=== PATIENT | female | born 1990 | race Caucasian/White ===

== ENCOUNTER 2016-12-02 19:06 | Emergency (ER) | payer MEDICARE ==
--- NOTE | 2016-12-02 19:47 | ED.ADGEN ---
Past History Past Medical History: Anxiety, CAD, Hip Fracture, Renal Disease, Other Past Surgical History: Hip Replacement, Other Smoking: Cigarettes Alcohol Use: None Drug Use: None Adult General Chief Complaint Chief Complaint " I hurt.. and I don't feel well... I had surgery on this Rt. hip.. but I left AMA.. and I usually need Hemodialysis.on Sat. .. ".." I am short of breath...".. " I was in [facility] for over a month... " HPI HPI Patient is a 26 year old female who presents with above hx and complaints of shortness of breath. Pt. reportedly recently had Rt. hip replacement had a code blue called during that admission. Pt. left AMA reportedly from [facility]. Pt. is Enstage renal dz with HD on . Sat. Pt. was found at home hypoxic in 80% sat range. Sats did come up to 92% on 4 liters nasal canula. Pt. follows with Dr. Stanton for nephrology. . Pt. complaints of fever and chills and generalized weakness. Pt. has generalized chest pain. Pt. some what poor historian. Review of Systems Review of Systems Constitutional: Hx fever or chills [] Eyes: Denies change in visual acuity, redness, or eye pain [] HENT: Denies nasal congestion or sore throat [] Respiratory: Hx of cough and shortness of breath [] Cardiovascular: No additional information not addressed in HPI [] GI: Denies abdominal pain, nausea, vomiting, bloody stools or diarrhea [] : Denies dysuria or hematuria [] Musculoskeletal: Denies back pain or joint pain [] Integument: Denies rash or skin lesions [] Neurologic: Denies headache, focal weakness or sensory changes [] Endocrine: Denies polyuria or polydipsia [] Family History Family History Non-contributory Current Medications Current Medications Current Medications Medications (Trade) Dose Ordered Sig/Radha Start Time Stop Time Status Last Admin Dose Admin Aspirin (Children'S Aspirin) 324 mg 1X ONCE 12/02/16 20:15 12/02/16 20:16 DC 12/02/16 20:15 324 MG Ceftriaxone Sodium 1 gm 1 gm 1X ONCE 12/02/16 21:30 12/02/16 21:31 DC 12/02/16 21:30 1 GM Diphenhydramine HCl 50 mg 50 mg 1X ONCE 12/02/16 22:00 12/02/16 22:01 DC 12/02/16 22:00 50 MG Morphine Sulfate (Morphine 10mg Syringe) 10 mg 1X ONCE 12/02/16 23:00 12/02/16 23:02 DC 12/02/16 22:38 10 MG Sodium Chloride (Iv Sodium Chloride 0.9% 250ml) 250 ml @ As Directed STK-MED ONCE 12/02/16 21:58 12/02/16 21:59 DC Vancomycin HCl 1 gm STK-MED ONCE 12/02/16 21:59 12/02/16 22:00 DC Vancomycin HCl/ Sodium Chloride (Iv Sodium Chloride 0.9% 250ml) 250 ml @ 250 mls/hr 1X ONCE 12/02/16 21:30 12/02/16 22:29 DC 12/02/16 21:30 250 MLS/HR Allergies Allergies Allergies Coded Allergies Type Severity Reaction Last Updated Verified Sulfa (Sulfonamide Antibiotics) Allergy Intermediate 12/02/16 Yes Physical Exam Physical Exam Constitutional:in acute distress, non-toxic appearance. [] HENT: Normocephalic, atraumatic, bilateral external ears normal, oropharynx moist, no oral exudates, nose normal. [] Eyes: PERRLA, EOMI, conjunctiva normal, no discharge. [] Neck: Normal range of motion, no tenderness, supple, no stridor. [] Cardiovascular:Tachycarida Heart rate regular rhythm, no murmur [] Lungs & Thorax: Bilateral breath sounds equal at apexes with scattered wheezes and rhonchi on auscultation , PMI to Lt. . Chest wall tender. Decrease breaths sounds Rt. base. Abdomen: Bowel sounds normal, soft, no tenderness, no masses, no pulsatile masses. Scar. Skin: Warm, dry, no erythema, no rash. Poor turgor. Back: No tenderness, no CVA tenderness. [] Extremities: Rt. hip tenderness, no cyanosis, no clubbing, ROM intact, no edema. Rt. hip bart- recent hip replacement. Shunt in Lt arm has good thrill. Neurologic: Alert and oriented X 3, No gross motor function deficits from base line, decreased distal sensory feet, Psychologic: Affect anxious, judgement normal, mood depressed. Current Patient Data Vital Signs Vital Signs Date Time Temp Pulse Resp B/P Pulse Ox O2 Delivery O2 Flow Rate FiO2 12/02/16 22:38 22 98 Nasal Cannula 12/02/16 20:00 4.0 12/02/16 19:10 97.7 122 Lab Results Laboratory Tests Test 12/02/16 21:00 12/02/16 21:20 Influenza Type A (Rapid) Negative (NEGATIVE) Influenza Type B (Rapid) Negative (NEGATIVE) Group A Streptococcus Rapid Negative (NEGATIVE) White Blood Count 15.0x10^3/uL (4.0-11.0) H Red Blood Count 2.77x10^6/uL (3.50-5.40) L Hemoglobin 8.7g/dL (12.0-15.5) L Hematocrit 26.3% (36.0-47.0) L Mean Corpuscular Volume 95fL (79-100) Mean Corpuscular Hemoglobin 31pg (25-35) Mean Corpuscular Hemoglobin Concent 33g/dL (31-37) Red Cell Distribution Width 16.8% (11.5-14.5) H Platelet Count 325x10^3/uL (140-400) Neutrophils (%) (Auto) 89% (31-73) H Lymphocytes (%) (Auto) 6% (24-48) L Monocytes (%) (Auto) 4% (0-9) Eosinophils (%) (Auto) 2% (0-3) Basophils (%) (Auto) 0% (0-3) Neutrophils # (Auto) 13.3x10^3uL (1.8-7.7) H Lymphocytes # (Auto) 0.8x10^3/uL (1.0-4.8) L Monocytes # (Auto) 0.6x10^3/uL (0.0-1.1) Eosinophils # (Auto) 0.2x10^3/uL (0.0-0.7) Basophils # (Auto) 0.0x10^3/uL (0.0-0.2) Prothrombin Time 13.1SEC (9.4-11.4) H Prothrombin Time INR 1.3 (0.9-1.1) H PTT 28SEC (23-33) Sodium Level 141mmol/L (136-145) Potassium Level 3.8mmol/L (3.5-5.1) Chloride Level 102mmol/L (98-107) Carbon Dioxide Level 30mmol/L (21-32) Anion Gap 9 (6-14) Blood Urea Nitrogen 39mg/dL (7-20) H Creatinine 4.6mg/dL (0.6-1.0) H Estimated GFR (Cockcroft-Gault) 11.5 Glucose Level 117mg/dL (70-99) H Calcium Level 7.7mg/dL (8.5-10.1) L Magnesium Level 1.6mg/dL (1.8-2.4) L Total Bilirubin 0.3mg/dL (0.2-1.0) Direct Bilirubin 0.1mg/dL (0.0-0.2) Aspartate Amino Transferase (AST) 19U/L (15-37) Alanine Aminotransferase (ALT) 16U/L (14-59) Alkaline Phosphatase 413U/L (46-116) H Creatine Kinase 21U/L (26-192) L Creatine Kinase MB (Mass) < 0.5ng/mL (0.0-3.6) Creatine Kinase MB Relative Index 2.4% (0-4) Troponin I Quantitative 0.034ng/mL (0-0.055) HM-Ocw-B-Type Natriuretic Peptide > 40925jl/mL (0-124) H Total Protein 6.6g/dL (6.4-8.2) Albumin 2.6g/dL (3.4-5.0) L Lipase 166U/L (73-393) Serum Test, Qualitative Negative (NEG) EKG EKG [] My interpretation of EKG shows a sinus tachycardia 120 bpm. Some bimodal P- wave's in left leads. This nonspecific anterior lateral changes. No findings acute STEMI of contralateral changes Radiology/Procedures Radiology/Procedures I interpretation of chest x-ray shows marked bilateral atelectasis. Cardiomegaly. Increased cephalization. Blunting of [place] Phrenic angles particularly on right. Suggestive of consolidated pneumonia .[]. Multiple rib fractures. Hip film shows adequate placement of artificial hip / socket. Bart. DJD CT shows numerous healing fx's, L 2 compression fx, Rt. loculated effusion and consolidation. Stent Lt subclavian . Hilar and axillary nodes. See formal report when available. Course & Med Decision Making Course & Med Decision Making Pertinent Labs and Imaging studies reviewed. (See chart for details). Arrangements made for transfer to [facility] - for consults with Dr. Bloom and Pulmonary. Dr. Davis-[facility] accepting. Room for transfer arranged. Pt. now does not want to go to [facility], request to be transfer to . Discussed presentation, testing and tx. plan with Christoph Solomon and agreed to accept pt in transfer. 0130. Transfer center then called back and asked for a report to be given to family practice. Discussed presentation, testing and tx plan with Dr. Hernandez, will accept pt in transfer. Critical care 60 mins.. [] Final Impression Final Impression 1. Respiratory failure hypoxia 2. Multiple rib fractures 3. End-stage renal disease hemodialysis Tuesdays and Saturdays 4. Hypo-magnesium 5. Leukocytosis 6. Anemia 7. Severe protein malnutrition albumin 2.6 8. Pneumonia [] 9. Recent Rt. Hip -Replacement 10.Hx Code Blue and CPR Problems: Dragon Disclaimer Dragon Disclaimer This electronic medical record was generated, in whole or in part, using a voice recognition dictation system. STEVE CASSIDY MD Dec 02, 2016 19:47
[2016-12-02] MEDS ORDERED: MORPHINE SULFATE 10 MG/ML SYRINGE. SQ ONE ×2 (20:00→23:00)
[2016-12-02] MEDS ORDERED: ASPIRIN 81 MG TAB.CHEW PO ONE (20:15)
--- NOTE | 2016-12-02 20:25 | EKG ---
[address] [address] Test Date: 2016-12-02 Test Time: 20:23:57 Pat Name: [facility] Department: Room: Gender: F Marketing Program Manager: : 1990 Requested By: STEVE CASSIDY Order Number: [id number] Reading MD: Measurements Intervals [place] Rate: 120 P: -154 OK: 100 QRS: 36 QRSD: 78 T: 43 QT: 320 QTc: 457 Interpretive Statements SINUS TACHYCARDIA LEFT ATRIAL ABNORMALITY QRS(T) CONTOUR ABNORMALITY CONSIDER ANTEROLATERAL MYOCARDIAL DAMAGE ABNORMAL ECG RI6.01 Unconfirmed report No previous ECG available for comparison
[2016-12-02] MEDS ORDERED: CEFTRIAXONE IM 1 GM VIAL. IM ONE (21:30)
[2016-12-02] MEDS ORDERED: VANCOMYCIN 1 GM in IV NORMAL SALINE 250ML 250 ML IV ONE (21:30)
[2016-12-02 21:40] LABS: BASO % 0 % (0-3); EOS # 0.2 x10^3/uL (0.0-0.7); EOS % 2 % (0-3); HEMATOCRIT 26.3 % (36.0-47.0); HEMOGLOBIN 8.7 g/dL (12.0-15.5); LYMPH # 0.8 x10^3/uL (1.0-4.8); LYMPH % 6 % (24-48); MEAN CORPUSCULAR HEMOGLOBIN 31 pg (25-35); MEAN CORPUSCULAR HGB CONC 33 g/dL (31-37); MEAN CORPUSCULAR VOLUME 95 fL (79-100); MONO # 0.6 x10^3/uL (0.0-1.1); MONO % 4 % (0-9); NEUT # 13.3 x10^3uL (1.8-7.7); NEUT % 89 % (31-73); PLATELET COUNT 325 x10^3/uL (140-400); RED BLOOD COUNT 2.77 x10^6/uL (3.50-5.40); RED CELL DISTRIBUTION WIDTH 16.8 % (11.5-14.5)
[2016-12-02 21:57] LABS: INFLUENZA A PATIENT NEGATIVE (NEGATIVE); INFLUENZA B PATIENT NEGATIVE (NEGATIVE)
[2016-12-02 21:58] LABS: PREG TEST PT QUAL NEGATIVE (NEG)
[2016-12-02] MEDS ORDERED: IV NORMAL SALINE 250ML 250 ML ONE (21:58)
[2016-12-02] MEDS ORDERED: VANCOMYCIN 1 GM VIAL. ONE (21:59)
[2016-12-02] MEDS ORDERED: DIPHENHYDRAMINE 50 MG/ML VIAL IM ONE (22:00)
[2016-12-02 22:02] LABS: ALBUMIN 2.6 g/dL (3.4-5.0); ALK PHOS 413 U/L (46-116); ALT (SGPT) 16 U/L (14-59); ANION GAP 9 (6-14); AST (SGOT) 19 U/L (15-37); BLOOD UREA NITROGEN 39 mg/dL (7-20); CALCIUM 7.7 mg/dL (8.5-10.1); CARBON DIOXIDE 30 mmol/L (21-32); CHLORIDE 102 mmol/L (98-107); CREATINE KINASE 21 U/L (26-192); CREATININE 4.6 mg/dL (0.6-1.0); DIRECT BILIRUBIN 0.1 mg/dL (0.0-0.2); GFR 11.5; GLUCOSE 117 mg/dL (70-99); LIPASE 166 U/L (73-393); MAGNESIUM 1.6 mg/dL (1.8-2.4); POTASSIUM 3.8 mmol/L (3.5-5.1); SODIUM 141 mmol/L (136-145); TOTAL BILIRUBIN 0.3 mg/dL (0.2-1.0); TOTAL PROTEIN 6.6 g/dL (6.4-8.2)
--- NOTE | 2016-12-02 23:25 | RAD ---
PROCEDURE CT chest without contrast HISTORY Prior rib fracture from fall and recent right hip surgery, and new pulmonary infiltrate TECHNIQUE Axial helical images the chest were obtained without contrast and axial coronal and sagittal reconstruction was performed. FINDINGS There are numerous a healing rib fractures bilaterally and there is a heal nondisplaced healing fracture of the right coracoid. There are multiple Schmorl's node seen in the vertebra body endplates of the lower thoracic spine and lumbar spine and there is a a L2 vertebral body compression fracture with mild loss of stature due to impaction of the superior endplate. There is patchy opacities in the upper and mid lungs bilaterally. There is a moderate loculated right effusion with consolidation in the right lower lobe. There is a stent seen in the proximal left subclavian vein. There is coronary artery calcifications. There is atrophy kidneys. There are numerous small mediastinal hilar and axillary lymph nodes is well is numerous small lymph nodes in the neck and above and below the clavicles. There is diffuse soft tissue edema. IMPRESSION One. Right lower lobe consolidation could be pneumonia. There is also a moderate right pleural effusion which could be a parapneumonic effusion. There is also additional bilateral infiltrates in the mid lungs which could be pneumonia. Two. Renal atrophy. 3. Significant atherosclerotic disease is advanced for the patient's age and could be secondary to renal failure. Four. Numerous healing fractures correlate with possible osteoporosis. Five. Diffuse soft tissue edema likely anasarca. Electronically signed by: Boris Piña MD (Dec 02, 2016 23:24:27)
[2016-12-03 00:12] VITALS: BP 147/101
--- NOTE | 2016-12-03 08:37 | RAD ---
Indication: Fall today, recent right hip surgery. Technique: AP pelvis is submitted for review. Comparison is from January 25, 2008. Findings: Right hip arthroplasty is noted. Questionable fracture of the pelvis near the acetabular component is noted. Positioning was difficult in this patient. Comparison to recent prior studies would be of benefit. Otherwise, no definite additional fracture is apparent. Impression: Recent right hip arthroplasty. Potential fracture adjacent to the acetabular component.
--- NOTE | 2016-12-03 08:40 | RAD ---
Indication: Fall, recent hip surgery. Technique: Semi upright portable chest radiograph was obtained. Comparison is from August 03, 2010. Findings: Several acute right rib fractures are noted. There is no pneumothorax. There is a small to medium right pleural effusion. Bilateral atelectasis or infiltrate is noted. Heart is enlarged. There is no definite heart failure. Vascular stent is noted. Impression: 1. Acute right rib fractures. 2. Right pleural effusion. 3. Atelectasis and or infiltrate bilaterally.
== END 2016-12-03 02:10 | disposition short-term general hospital (02) ==
LOC: ER 19:06 → EEVIPCON 19:06 → ER 12-03 02:10
DX: J96.91 Respiratory failure, unspecified with hypoxia (principal); S22.41XA Multiple fractures of ribs, right side, initial encounter for closed fracture; N18.6 End stage renal disease; E83.42 Hypomagnesemia; E43 Unspecified severe protein-calorie malnutrition; D64.9 Anemia, unspecified; J18.9 Pneumonia, unspecified organism; D72.829 Elevated white blood cell count, unspecified; I25.10 Atherosclerotic heart disease of native coronary artery without angina pectoris; F17.210 Nicotine dependence, cigarettes, uncomplicated; Z96.641 Presence of right artificial hip joint; Z99.2 Dependence on renal dialysis; Z88.2 Allergy status to sulfonamides; X58.XXXA Exposure to other specified factors, initial encounter; Y93.89 Activity, other specified; Y99.8 Other external cause status; Y92.89 Other specified places as the place of occurrence of the external cause
CPT/HCPCS: 36415; 71010; 71250; 72170; 80048; 80076; 82553; 83690; 83735; 83880; 84443; 84484; 84703; 85027; 85610; 85730; 87040; 87070; 87804; 87880; 93005; 96365; 96366; 96372; 99291; J0696; J1200; J2270; J3370; J7050